=== PATIENT | male | born 1930 | race Caucasian/White ===

== ENCOUNTER → 2016-04-05 | Outpatient (CLI) | payer MEDICARE ==
[~2016-04-05] MED LIST: 00186-0372-20 IH; ACTOS 15MG TAB15 MG PO; AMOXICILLIN 8751 TAB PO; B6-5050 MG PO; BYSTOLIC10 MG PO; CAL-MAG1 TAB PO; CEPHALEXIN500 M1 PO; FLAGYL500 MG PO; FLOMAX 0.40.4 MG/CAP PO; GLUCOSAMINE PO; HYGROTON25 MG PO; JANUVIA 100MG100 MG PO; LANTUS SOLOS100 U/ML SC; MOBIC 7.5MG7.5 MG PO; NASONEX SPRAY17 GM NS; NOVOLOG FLEX100 U/ML SC; PATANOL OPHTHALM5 ML OU; PRILOSEC 20MG20 MG PO; PROSCAR 5MG5 MG PO; VITAMIN D3400 IU PO; ZYRTEC 10MG10 MG PO
[2016-04-05 12:41] LABS: HEMATOCRIT 39.2 % (42.0-52.0); MEAN CELL VOLUME 87 fl (80.0-100.0); MEAN CORPUSCULAR HEMOGLOBIN 29 pg (27.0-31.0); MEAN CORPUSCULAR HGB CONC 33 g/dl (33.0-37.0); MEAN PLATELET VOLUME 10.4 fl (7.4-10.4); PLATELET COUNT 169 K/mm3 (130-400); RED BLOOD COUNT 4.49 M/mm3 (4.20-5.60); REDCELL DISTRIBUTION WIDTH-CV 13.8 % (11.5-14.5); WHITE BLOOD COUNT 8.9 K/mm3 (4.8-10.8)
[2016-04-05 13:34] LABS: ERYTHROCYTE SEDIMENTATION RATE 13 mm/hr (0-30)
== END ==
LOC: COL.LAB 11:29
PROVIDERS: Nurse Practitioner
DX: Z01.89 Encounter for other specified special examinations (principal)